=== PATIENT | male | born 1960 | race Caucasian/White ===

== ENCOUNTER 2016-07-09 11:11 | Emergency (ER) | payer MEDICARE, MEDICAID ==
[2016-07-09 12:19] VITALS: BP 122/71
--- NOTE | 2016-07-09 14:53 | UC ---
Skin Complaint HPI - HPI Summary HPI Summary: pt p/w painful red sore on his abd x 2 weeks. used warm compress3-4x/day. seemed to improve at the end of the first week. then sx worsened considerably 5 days ago. any pressure extremely painful(8/10). pt squeezed lesion last night and expressed small amout of exudate. denies f/c/s. - History of Current Complaint Chief Complaint: UCSkin Time Seen by Provider: 07/09/16 12:02 Stated Complaint: SKIN COMPLAINT Hx Obtained From: Patient Onset/Duration: Gradual Onset, Lasting Weeks - 2, Still Present, Worse Since - 5days ago Timing: Constant Onset Severity: Mild Current Severity: Moderate Pain Intensity: 6 Pain Scale Used: 0-10 Numeric Location: Discrete Character: Swelling, Pain, Redness Aggravating: Touch, Other - movement Alleviating: Heat Associated Signs & Symptoms: Positive: Drainage, Tenderness. Negative: Nausea, Vomiting, Diaphoresis, Weakness, Shivering, Difficulty Breathing, Fever, Chills , Cough, Wheezing, Chest Pain, Hoarseness, Throat Tightening, Abdominal Pain, Lightheadedness, Syncope - Allergy/Home Medications Allergies/Adverse Reactions: Allergies Allergy/AdvReac Type Severity Reaction Status Date / Time Ciprofloxacin [From Cipro] Allergy Intermediate Rash Verified 07/09/16 12:19 Morphine Allergy Intermediate stomach, Verified 07/09/16 12:19 chest pain Review of Systems Constitutional: Negative Skin: Other - tender red sore on abd Eyes: Negative ENT: Negative Respiratory: Negative Cardiovascular: Negative Gastrointestinal: Negative Genitourinary: Negative Motor: Negative Neurovascular: Negative Musculoskeletal: Negative Neurological: Negative Psychological: Negative All Other Systems Reviewed And Are Negative: Yes PMH/Surg Hx/FS Hx/Imm Hx Endocrine History Of: Reports: Diabetes - po meds Denies: Thyroid Disease Cardiovascular History Of: Reports: Hypertension Denies: Cardiac Disorders, Pacemaker/ICD Respiratory History Of: Denies: COPD, Asthma GI/ History Of: Reports: Kidney Stones Denies: Ulcer, Renal Disease - Surgical History Surgical History: Yes Surgery Procedure, Year, and Place: Cholecystectomy -URETHRA STRICTURE [facility] 2008-2 MENISCUS TEARS RIGHT KNEE; left knee meniscus 03/2016. 2 NECK FUSION SURGERY [place] 2013 - Family History Known Family History: Positive: Cardiac Disease, Hypertension, Diabetes - Social History Lives: With Family Alcohol Use: None Substance Use Type: None Smoking Status (MU): Heavy Every Day Tobacco Smoker Amount Used/How Often: 1.5 ppd Length of Time of Smoking/Using Tobacco: started about age [age] years old Cessation Counseling: Counseled 3+Min - 10 Min Physical Exam Triage Information Reviewed: Yes Appearance: Well-Appearing, No Pain Distress, Well-Nourished Vital Signs: Initial Vital Signs Temp 99 F 07/09/16 12:14 Pulse 91 07/09/16 12:14 Resp 18 07/09/16 12:14 BP 122/71 07/09/16 12:14 Vital Signs Reviewed: Yes Eyes: Positive: Conjunctiva Clear. Negative: Discharge ENT: Positive: Hearing grossly normal. Negative: Muffled/hoarse voice Neck exam: Normal Neck: Positive: Supple Respiratory: Positive: Lungs clear, Normal breath sounds, No respiratory distress, No accessory muscle use Cardiovascular: Positive: RRR, No Murmur Abdomen Description: Positive: Nontender, Soft, Other: - sore on abd inferior to navel. Negative: Distended, Guarding Bowel Sounds: Positive: Present Musculoskeletal Exam: Normal Neurological: Positive: Alert, Muscle Tone Normal Psychological: Positive: Age Appropriate Behavior Skin: Positive: Other - 2cm red, tender, pos calor and induration(<1cm). neg fluctulance. open but not draining. minimal exudate expressed and cultured. Course/Dx - Course Course Of Treatment: cx was sent. however, sample was minimal. - Differential Diagnoses - Skin Complaint Differential Diagnoses: Abscess, Cellulitis, MRSA - Diagnoses Provider Diagnoses: abscess Discharge - Discharge Plan Condition: Stable Disposition: HOME Prescriptions: HYDROcodone/ACETAMIN 5-325 MG* [Ceres 5-325 TAB*] 1 tab PO Q8H PRN #5 tab MDD 3 TABS PRN Reason: Pain Sulfamethox/Trimethoprim DS* [Bactrim DS 800/160 TAB*] 1 tab PO BID #10 tab Patient Education Materials: Abscess (ED) Referrals: Aidan Moran MD [Primary Care Provider] - 2 Days Additional Instructions: ANTIBIOTIC THERAPY: You have been given an antibiotic prescription. It's important that you take all the medication, unless instructed otherwise by your physician. Failure to complete the entire course can result in relapse of your condition. Common side effects of antibiotics include nausea, intestinal cramping, or diarrhea. Women may develop vaginal yeast infections, and babies can get yeast (thrush) in the mouth following the use of antibiotics. Contact your physician if you develop significant side effects from this medication. Allergy to this antibiotic can result in hives, wheezing, faintness, or itching. If symptoms of allergy occur, stop the medication and call the doctor. ANY TIME YOU TAKE AN ANTIBIOTIC, IT IS IMPORTANT TO REPLENISH THE BODY'S BALANCE OF "GOOD" BACTERIA BY EATING HIGH QUALITY CULTURED FOOD SUCH YOGURT, SAURKRAUT OR LEXX CHI AND/OR TAKING A PROBIOTIC SUPPLEMENT. ORAL NARCOTIC MEDICATION: You have been given a prescription for pain control. This medication is a narcotic. It's best taken with food, as nausea can result if taken on an empty stomach. Don't operate machinery or drive within six hours of taking this medication. Do not combine this medicine with alcohol, or with any medication which can cause sedation (such as cold tablets or sleeping pills) unless you get permission from the physician. Narcotics tend to cause constipation. If possible, drink plenty of fluids and eat a diet high in fiber and fruits. STOP SMOKING: You should stop smoking. The tar and chemicals in cigarette smoke are harmful. Smoking has been shown to cause: emphysema chronic bronchitis lung cancer mouth and throat cancer stomach and pancreas cancer premature aging defects In addition, smoking increases ear and lung infections in children of smokers. Follow up in 2 days for re-evaluation. This follow up visit is important, we want to know that you are improving. If you can not get in with your PCP, return here for re-evaluation. Images Front/Back of Body, Lg (Dougherty): 1 - abd skin lesion
== END 2016-07-09 13:34 | disposition home or self-care (01) ==
LOC: UCCORT 11:11
DX: L02.211 Cutaneous abscess of abdominal wall (principal); E11.9 Type 2 diabetes mellitus without complications; F17.210 Nicotine dependence, cigarettes, uncomplicated; Z88.1 Allergy status to other antibiotic agents; Z88.5 Allergy status to narcotic agent
CPT/HCPCS: 87070; 87205; 99212; G0463

== ENCOUNTER 2016-07-11 11:22 | Emergency (ER) | payer MEDICARE, MEDICAID ==
[2016-07-11 12:59] VITALS: BP 122/82
--- NOTE | 2016-07-11 13:22 | UC ---
Skin Complaint HPI - HPI Summary HPI Summary: F/U abscess on lower abdomen. SEen here 2d ago, started Bactrim 48 hrs ago, " not helping." No fever or vomiting. Thinks the sore is more painful. Putting heat on it. NO drainage. Wound culture from 2d ago grew normal gaudencio - History of Current Complaint Chief Complaint: UCSkin Time Seen by Provider: 07/11/16 12:55 Stated Complaint: STOMACH/SKIN COMPLAINT Hx Obtained From: Patient Onset/Duration: Gradual Onset, Lasting Weeks - 1 Timing: Constant Onset Severity: Moderate Current Severity: Moderate Character: Swelling, Redness, Raised, Painful Aggravating: Touch Alleviating: Heat Associated Signs & Symptoms: Positive: Drainage - off and on, Tenderness. Negative: Nausea, Fever, Chills - Allergy/Home Medications Allergies/Adverse Reactions: Allergies Allergy/AdvReac Type Severity Reaction Status Date / Time Ciprofloxacin [From Cipro] Allergy Intermediate Rash Verified 07/11/16 12:53 Morphine Allergy Intermediate stomach, Verified 07/11/16 12:53 chest pain Review of Systems Constitutional: Negative Skin: Other - abscess with redness Eyes: Negative ENT: Negative Respiratory: Negative Cardiovascular: Negative Gastrointestinal: Negative Genitourinary: Negative Motor: Negative Neurovascular: Negative Musculoskeletal: Negative Neurological: Negative Psychological: Negative All Other Systems Reviewed And Are Negative: Yes PMH/Surg Hx/FS Hx/Imm Hx Endocrine History Of: Reports: Diabetes - po meds Denies: Thyroid Disease Cardiovascular History Of: Reports: Hypertension Denies: Cardiac Disorders, Pacemaker/ICD Respiratory History Of: Denies: COPD, Asthma GI/ History Of: Reports: Kidney Stones Denies: Ulcer, Renal Disease - Surgical History Surgical History: Yes Surgery Procedure, Year, and Place: [place] [facility] [place] MENISCUS TEARS RIGHT KNEE; left knee meniscus 03/2016. 2 NECK FUSION SURGERY [place] 2013 - Family History Known Family History: Positive: Cardiac Disease, Hypertension, Diabetes - Social History Occupation: Employed Full-time Lives: With Family Alcohol Use: None Substance Use Type: None Smoking Status (MU): Heavy Every Day Tobacco Smoker Amount Used/How Often: 1.5 ppd Length of Time of Smoking/Using Tobacco: started about age [age] years old Household Exposure Type: Cigarettes Physical Exam Triage Information Reviewed: Yes Appearance: Well-Appearing, No Pain Distress, Well-Nourished Vital Signs: Initial Vital Signs Temp 98.3 F 01/29/17 12:54 Pulse 75 07/11/16 12:54 Resp 16 07/11/16 12:54 BP 122/82 07/11/16 12:54 Pulse Ox 100 07/11/16 12:54 Vital Signs Reviewed: Yes Eye Exam: Normal Respiratory Exam: Normal Cardiovascular Exam: Normal Abdomen Description: Positive: No Organomegaly, Soft Musculoskeletal Exam: Normal Neurological Exam: Normal Psychological Exam: Normal Skin Exam: Other - nickel-sized firm cutaneous nodule on lower midline abdomen with central opening. Dry. Surrounding erythema. Moderately tender to palpation. Course/Dx - Differential Diagnoses - Skin Complaint Differential Diagnoses: Abscess, Cellulitis - Diagnoses Provider Diagnoses: cutaneous abscess Discharge - Discharge Plan Condition: Stable Disposition: HOME Prescriptions: Clindamycin Cap(NF) [Cleocin 300 mg Cap(NF)] 300 mg PO TID #30 cap HYDROcodone/ACETAMIN 5-325 MG* [B[place]roft 5-325 TAB*] 1 - 2 tab PO Q8H PRN #14 tab MDD 6 tab PRN Reason: Pain Patient Education Materials: Abscess (ED) Referrals: Aidan Moran MD [Primary Care Provider] - Additional Instructions: Stop the Bactrim. Start Clindamycin instead. Continue to put warm compresses on the area. It should start to resolve over the next few days. Return if the redness or swelling is worsening, or if you start to run fevers over 100.5
== END 2016-07-11 13:30 | disposition home or self-care (01) ==
LOC: UCCORT 11:22
DX: L02.211 Cutaneous abscess of abdominal wall (principal); Z88.1 Allergy status to other antibiotic agents; Z88.5 Allergy status to narcotic agent; F17.210 Nicotine dependence, cigarettes, uncomplicated
CPT/HCPCS: 99212; G0463

== ENCOUNTER 2016-08-03 18:49 | Emergency (ER) | payer MEDICARE, MEDICAID ==
[2016-08-03 20:15] VITALS: BP 128/81
--- NOTE | 2016-08-03 20:51 | UC ---
Lower Extremity/Ankle HPI - HPI Summary HPI Summary: Achiness, heaviness, generalized weakness in bilt lags for "a few days." Noticed low back pain today. Denies fever, trouble with bowel or bladder. No hx of lumbar spine problems, had neck surgery in 2013. No known trauma. - History of Current Complaint Chief Complaint: UCBackPain Stated Complaint: LOWER BACK PAIN BILATERAL LEG PAIN Time Seen by Provider: 08/03/16 20:33 Hx Obtained From: Patient Onset/Duration: Gradual Onset, Lasting Days Severity Initially: Moderate Severity Currently: Moderate Aggravating Factor(s): Standing, Ambulation Alleviating Factor(s): Rest Able to Bear Weight: Yes - Allergies/Home Medications Allergies/Adverse Reactions: Allergies Allergy/AdvReac Type Severity Reaction Status Date / Time Ciprofloxacin [From Cipro] Allergy Intermediate Rash Verified 08/03/16 20:15 Morphine Allergy Intermediate stomach, Verified 08/03/16 20:15 chest pain PMH/Surg Hx/FS Hx/Imm Hx Endocrine History Of: Reports: Diabetes - po meds Denies: Thyroid Disease Cardiovascular History Of: Reports: Hypertension Denies: Cardiac Disorders, Pacemaker/ICD Respiratory History Of: Reports: COPD Denies: Asthma GI/ History Of: Reports: Kidney Stones Denies: Ulcer, Renal Disease - Surgical History Surgical History: Yes Surgery Procedure, Year, and Place: Cholecystectomy -URETHRA STRICTURE [facility] [place] 2008- MENISCUS TEARS RIGHT KNEE; left knee meniscus 03/2016. 2 NECK FUSION SURGERY [place] 2013 - Family History Known Family History: Positive: Cardiac Disease, Hypertension, Diabetes - Social History Alcohol Use: None Substance Use Type: None Smoking Status (MU): Heavy Every Day Tobacco Smoker Amount Used/How Often: 1.5 ppd Length of Time of Smoking/Using Tobacco: started about age [age] years old Household Exposure Type: Cigarettes - Immunization History Most Recent Influenza Vaccination: [id number] Review of Systems Constitutional: Negative Skin: Negative Eyes: Negative ENT: Negative Respiratory: Negative Cardiovascular: Negative Gastrointestinal: Negative Genitourinary: Negative Motor: Negative Neurovascular: Negative Musculoskeletal: Decreased ROM, Myalgia Neurological: Weakness Psychological: Negative All Other Systems Reviewed And Are Negative: Yes Physical Exam Triage Information Reviewed: Yes Appearance: Pain Distress - with movement Vital Signs: Initial Vital Signs Temp 100 F 08/03/16 20:09 Pulse 94 08/03/16 20:09 Resp 18 08/03/16 20:09 BP 128/81 08/03/16 20:09 Pulse Ox 96 08/03/16 20:09 Vital Signs Reviewed: Yes Eye Exam: Normal Eyes: Positive: Conjunctiva Clear ENT Exam: Normal ENT: Positive: Normal ENT inspection, Hearing grossly normal, Pharynx normal, TMs normal Neck exam: Normal Neck: Positive: Supple, Nontender, No Lymphadenopathy Respiratory Exam: Normal Respiratory: Positive: Chest non-tender, Lungs clear, Normal breath sounds, No respiratory distress, No accessory muscle use Cardiovascular Exam: Normal Cardiovascular: Positive: RRR, No Murmur Musculoskeletal: Positive: ROM Intact, No Edema, Strength Limited @ - generalized weakness, strength 3/4 bilat LE. Neurological Exam: Other - DTRs 2+ bilt knees, negative Babinski response Psychological Exam: Normal Skin Exam: Normal Lower Extremity Course/Dx - Differential Dx/Diagnosis Provider Diagnoses: Low back pain. bilat leg pain Discharge - Discharge Plan Condition: Stable Disposition: HOME Prescriptions: HYDROcodone/ACETAMIN 5-325 MG* [Sycamore 5-325 TAB*] 1 tab PO Q8H PRN #10 tab MDD 3 PRN Reason: Pain Indomethacin CAP* [Indocin CAP*] 50 mg PO TID PRN #15 cap PRN Reason: Pain Patient Education Materials: Acute Low Back Pain (ED), Leg Pain (ED) Referrals: Aidan Moran MD [Primary Care Provider] - 3 Days Additional Instructions: If you don't have some improvement over the next couple days, please see your primary care provider.
== END 2016-08-03 21:10 | disposition home or self-care (01) ==
LOC: UCCORT 18:49
DX: M54.5 Low back pain (principal); M79.605 Pain in left leg; M79.604 Pain in right leg; E11.9 Type 2 diabetes mellitus without complications; F17.210 Nicotine dependence, cigarettes, uncomplicated; Z88.1 Allergy status to other antibiotic agents; Z88.5 Allergy status to narcotic agent
CPT/HCPCS: 99212; G0463

== ENCOUNTER 2016-12-06 10:00 | Day surgery (SDC) | payer MEDICARE, MEDICAID ==
[~2016-12-06 10:00] MED LIST: Buffered Lidocaine 0.9% SYRIN* 5 ML/SYR SYRINGE INTRADERM ONE; Famotidine IV* 10 MG/ML 2 ML (20 mg) IV ONE
[2016-12-06] MEDS ORDERED: Famotidine IV* 10 MG/ML 2 ML (20 mg) ONE (10:12)
[2016-12-06] MEDS ORDERED: ceFAZolin 2 GM PREMIX(*) 2 GM/50 ML BAG IVPB ONE (10:12)
[2016-12-06] MEDS ORDERED: DiMENhydriNATE IV* 50 MG/ML VIAL IV PUSH PRN (10:39)
[2016-12-06] MEDS ORDERED: fentaNYL* 50 MCG/ML 2 ML VIAL (100 MCG VIAL) IV PRN (10:39)
[2016-12-06] MEDS ORDERED: Chloroprocaine 2%* 20 ML VIAL ONE (10:53)
[2016-12-06] MEDS ORDERED: fentaNYL* 50 MCG/ML 2 ML VIAL (100 MCG VIAL) ONE (10:56)
[2016-12-06] MEDS ORDERED: Midazolam* 1 MG/ML 2 ML VIAL (2 MG) ONE (10:57)
[2016-12-06] MEDS ORDERED: methylPREDNISolone ACETATE 80* 80 MG/ML 1 ML VIAL ONE (11:05)
[2016-12-06] MEDS ORDERED: Bupivacaine 0.25% EPI 200,000* 30 ML SDV ONE (11:06)
[2016-12-06] MEDS ORDERED: Bupivacaine 0.25% SDV* 30 ML ONE (11:06)
[2016-12-06 15:15] VITALS: BP 132/77
--- NOTE | 2016-12-09 06:36 | OP ---
DATE OF OPERATION: 12/06/16 - [facility] DATE OF : 64 SURGEON: Geovany Nagy MD FORM COVERER: DERREK Renteria ANESTHESIOLOGIST: Dr. Wharton. ANESTHESIA: Local with spinal. PRE-OP DIAGNOSIS: Left knee medial meniscal tear. POST-OP DIAGNOSES: Chondrosis, medial meniscal tear, lateral meniscal tear. OPERATIVE PROCEDURE: Left knee arthroscopy with chondroplasty of the trochlea and lateral compartment, partial lateral meniscectomy and partial medial meniscectomy. INDICATIONS: Phong Rey is a 55-year-old male who had a previous partial meniscectomy done approximately eight months ago by Dr. Sorenson. He sustained a twisting injury recently and had the similar symptoms. He has failed conservative management and likes to proceed with operative treatment. Risks and benefits of the surgery include but are not limited to bleeding, infection, damage to nerve, vessels, surrounding structures, wound nonhealing, persistent pain, need for further surgery, scarring, persistent pain, risk of anesthesia. COMPLICATIONS: None. ESTIMATED BLOOD LOSS: Minimal. DESCRIPTION OF PROCEDURE: The patient was greeted in the preoperative area by the attending surgeon. Correct extremity was marked and consent was confirmed. The patient was brought back to the operating suite, where he was placed in supine position and he was sat up and underwent a spinal anesthesia after which the left knee was prepped and draped in the usual sterile fashion. The left knee was then positioned. The lateral an unsterile tourniquet was placed proximal on the thigh. After a minute of surgical pause, intra- articularly injected with 0.25% Marcaine with epi. The left knee was prepped and draped in the usual sterile fashion beginning with chlorhexidine soap, scrub , and alcohol wipe and a final prep with ChloraPrep. After appropriate surgical pause indicating side, site, procedure, and administration of antibiotics, the anterolateral portal was made sharply with an 11 blade. The scope was introduced into the joint. The joint was examined. There was abundant synovitis anteriorly, which was carefully removed. The ACL and PCL were intact although the ACL was mildly degenerative. There was grade 2 changes with unstable flaps on the trochlea. The patellofemoral joint had grade 0-1 changes. The scope was positioned in the medial compartment which was found to have evidence of a previous partial meniscectomy. The probe was used to find the undersurface tear. The biter and brant were then used to perform a subtotal meniscectomy. The probe was used and there were no further tears identified after the . The knee was placed in the figure-of -four position and the lateral compartment was examined. They were graded at 0- 1 changes of the lateral femoral condyle and grade 1-2 of the lateral tibial plateau. There was some mild amount of fraying about the lateral meniscus and this was debrided back using the shaver. At this point, the knee was brought into extension and the knee was thoroughly lavaged and one last time the medial compartment was checked to make sure that there was no excess remnant of meniscus there. The knee was thoroughly lavaged. The portals were also lavaged. They were closed with 3-0 nylon in an interrupted fashion. The sterile dressings were applied. The knee was intra-articularly injected with 0.025% Marcaine plain. A sterile dressing as well as a Cryo/Cuff was applied. He was woke from anesthesia and transferred to PACU in stable condition. POSTOPERATIVE PLAN: He will be weightbearing as tolerated. He will be range of motion as tolerated. He will be discharged on pain medications and antibiotics. DVT prophylaxis was considered but deferred due to no previous personal or family history. [id number]/[facility] #: [id number] ARGENIS
== END 2016-12-06 15:24 | disposition home or self-care (01) ==
LOC: OREAST 10:00
PROVIDERS: ATTEND Orthopaedic Surgery
DX: S83.242A Other tear of medial meniscus, current injury, left knee, initial encounter (principal); S83.282A Other tear of lateral meniscus, current injury, left knee, initial encounter; X50.9XXA Other and unspecified overexertion or strenuous movements or postures, initial encounter; Y92.9 Unspecified place or not applicable; M22.8X2 Other disorders of patella, left knee; I10 Essential (primary) hypertension; J44.9 Chronic obstructive pulmonary disease, unspecified; E11.9 Type 2 diabetes mellitus without complications; F41.9 Anxiety disorder, unspecified; F32.9 Major depressive disorder, single episode, unspecified; Z88.1 Allergy status to other antibiotic agents; Z88.5 Allergy status to narcotic agent; F17.210 Nicotine dependence, cigarettes, uncomplicated; E78.00 Pure hypercholesterolemia, unspecified; Z79.84 Long term (current) use of oral hypoglycemic drugs; M23.232 Derangement of other medial meniscus due to old tear or injury, left knee; S83.412A Sprain of medial collateral ligament of left knee, initial encounter
CPT/HCPCS: J0690; J1040; J2250; J2400; J3010

== ENCOUNTER 2017-02-13 16:36 | Emergency (ER) | payer MEDICARE, MEDICAID ==
[2017-02-13 17:02] VITALS: BP 127/75
[2017-02-13] MEDS ORDERED: Levalbuterol 1.25MG/0.5ML NEB INH ONE (17:32)
[2017-02-13] MEDS ORDERED: Albuterol 2.5 MG/3 ML NEB.SOL* (0.083%) INH ONE (17:36)
[2017-02-13] MEDS ORDERED: Ipratropium 0.5MG/2.5ML NEB* 0.5 MG/2.5 ML NEB.SOLN INH ONE (17:36)
--- NOTE | 2017-02-13 17:40 | UC ---
Respiratory Complaint HPI - HPI Summary HPI Summary: Pt presents with c/o nasal and sinus congestion, cough, wheezing and SOB X 1 week. Pt denies fever, chills or weight loss. - History of Current Complaint Chief Complaint: UCRespiratory Stated Complaint: SINUS/CHEST CONGESTION Time Seen by Provider: 02/13/17 17:09 Hx Obtained From: Patient Onset/Duration: Gradual Onset, Lasting Days - 7, Still Present, Worse Since - onset Timing: Constant Severity Initially: Mild Severity Currently: Moderate Character: Cough: Nonproductive Aggravating Factors: Deep Breaths, Recumbent Position Alleviating Factors: Nothing Associated Signs And Symptoms: Positive: Wheezing, URI, Nasal Congestion - Risk Factors Pulmonary Embolism Risk Factors: Negative Cardiac Risk Factors: Hypertension, Elevated Lipids Pseudomonas Risk Factors: Negative Tuberculosis Risk Factors: Negative - Allergies/Home Medications Allergies/Adverse Reactions: Allergies Allergy/AdvReac Type Severity Reaction Status Date / Time Ciprofloxacin [From Cipro] Allergy Intermediate Rash Verified 02/13/17 17:02 Morphine Allergy Intermediate stomach, Verified 02/13/17 17:02 chest pain PMH/Surg Hx/FS Hx/Imm Hx Previously Healthy: Yes Endocrine History: Dyslipidemia Cardiovascular History: Hypertension - Surgical History Surgical History: Yes Surgery Procedure, Year, and Place: Cholecystectomy -URETHRA STRICTURE [facility] 2008-2 MENISCUS TEARS RIGHT KNEE; left knee meniscus 03/2016. 2 NECK FUSION SURGERY [place] 2013. right hand trigger finger surgery - Family History Known Family History: Positive: Cardiac Disease, Hypertension, Diabetes - Social History Lives: Alone Alcohol Use: None Substance Use Type: None Smoking Status (MU): Former Smoker Type: Cigarettes Amount Used/How Often: 1.5 ppd, smokes for more than 30 years Length of Time of Smoking/Using Tobacco: started about age [age] years old Have You Smoked in the Last Year: No When Did the Patient Quit Smoking/Using Tobacco: 12/27 Household Exposure Type: Cigarettes - Immunization History Most Recent Influenza Vaccination: no Review of Systems Constitutional: Fatigue Skin: Negative Eyes: Negative ENT: Sinus Congestion, Other - nasal congestion Respiratory: Cough, Other - wheezing Cardiovascular: Negative Gastrointestinal: Negative Genitourinary: Negative Motor: Negative Neurovascular: Negative Musculoskeletal: Negative Neurological: Negative Psychological: Negative All Other Systems Reviewed And Are Negative: Yes Physical Exam Triage Information Reviewed: Yes Appearance: Ill-Appearing Vital Signs: Initial Vital Signs Temp 98.8 F 02/13/17 16:57 Pulse 90 02/13/17 16:57 Resp 18 02/13/17 16:57 BP 127/75 02/13/17 16:57 Pulse Ox 95 02/13/17 16:57 Eye Exam: Normal ENT Exam: Normal Dental Exam: Normal Neck exam: Normal Respiratory Exam: Other Respiratory: Positive: Decreased breath sounds - bases bilateral, Wheezing - scattered throughout all Cardiovascular Exam: Normal Musculoskeletal Exam: Normal Neurological Exam: Normal Psychological Exam: Normal Skin Exam: Normal UC Diagnostic Evaluation - Laboratory O2 Sat by Pulse Oximetry: 95 Respiratory Course/Dx - Course Course Of Treatment: xray report discussed with pt. Pt verbalized understanding and agreed to plan of care. - Differential Dx/Diagnosis Differential Diagnosis/HQI/PQRI: Bronchitis, Other - pneumonia Provider Diagnoses: pneumonia Discharge - Discharge Plan Condition: Stable Disposition: HOME Prescriptions: Azithromycin TAB* [Zithromax TAB (Z-MELVIN) 250 mg #6 tabs] 2 tab PO .TODAY, THEN 1 DAILY #1 melvin Benzonatate CAP* [Tessalon 100 MG CAP*] 100 mg PO Q8H PRN #30 cap PRN Reason: Cough methylPREDNISolone TAB* [Medrol TAB*] 4 - 8 mg PO .SEE MELVIN #1 melvin Patient Education Materials: Pneumonia (ED) Referrals: Aidan Moran MD [Primary Care Provider] - 3 Days (Please follow up with your PCP in 3 days or as needed. If symptoms do not improve please seek medical attention as soon as possible. )
[2017-02-13] MEDS ORDERED: Azithromycin TAB* 250 MG PO ONE (18:07)
--- NOTE | 2017-02-13 18:38 | RAD ---
INDICATION: Shortness of breath, fatigue and cough. COMPARISON: Comparison is made with a prior study from November 01, 2010. TECHNIQUE: Dual-energy PA and lateral views of the chest were obtained. FINDINGS: The heart is within normal limits in size. Mediastinal and hilar contours appear within normal limits. The lungs are clear. There is mild blunting of the left costophrenic angle consistent with pleural thickening or a trace pleural effusion. Postsurgical changes are noted in the lower cervical spine. IMPRESSION: MILD BLUNTING OF THE LEFT COSTOPHRENIC ANGLE CONSISTENT WITH PLEURAL THICKENING OR A TRACE PLEURAL EFFUSION.
== END 2017-02-13 18:50 | disposition home or self-care (01) ==
LOC: UCCORT 16:36
DX: J18.9 Pneumonia, unspecified organism (principal); Z87.891 Personal history of nicotine dependence
CPT/HCPCS: 71020; 99212; A9270-GY; G0463; J7644

== ENCOUNTER 2017-09-01 13:53 | Emergency (ER) | payer MEDICARE, MEDICAID ==
[2017-09-01 16:04] VITALS: BP 142/84
--- NOTE | 2017-09-01 16:14 | UC ---
Skin Complaint HPI - HPI Summary HPI Summary: 56 year old male with diabetes presents with skin complaint. 3-4 days ago noticed in between the 3rd and on the 4th digit there was redness and a area of swelling that is tender to touch and maybe a little bigger now and hurts more with walking. no fever. has had DM-2 for 2 years. no apartment locator. no history of neuropathy. no drainage. - History of Current Complaint Chief Complaint: UCSkin Time Seen by Provider: 09/01/17 16:00 Stated Complaint: INFECTED TOE (DIABETIC) Hx Obtained From: Patient Onset/Duration: Gradual Onset Skin Exposure Onset/Duration: Days Ago Timing: Constant Onset Severity: Mild Current Severity: Moderate Pain Intensity: 4 - Allergy/Home Medications Allergies/Adverse Reactions: Allergies Allergy/AdvReac Type Severity Reaction Status Date / Time ciprofloxacin Allergy Rash Verified 09/01/17 15:54 morphine Allergy STOMACH/CHEST Verified 09/01/17 15:54 PAIN Home Medications: Home Medications Ibuprofen TAB* [Advil TAB*] 400 mg PO Q6H PRN 09/01/17 [History Confirmed ] glipiZIDE [Glipizide] 10 mg PO BID 09/01/17 [History Confirmed 09/01/17] Review of Systems Skin: Other - redness and pain on skin on left foot All Other Systems Reviewed And Are Negative: Yes PMH/Surg Hx/FS Hx/Imm Hx Previously Healthy: Yes Endocrine History: Diabetes, Dyslipidemia Cardiovascular History: Hypertension GI/ History: Gastroesophageal Reflux - Surgical History Surgical History: Yes Surgery Procedure, Year, and Place: Cholecystectomy -URETHRA STRICTURE [facility] [place] 2008-2 MENISCUS TEARS RIGHT KNEE; left knee meniscus 03/2016. 2 NECK FUSION SURGERY [place] 2013. right hand trigger finger surgery - Family History Known Family History: Positive: Cardiac Disease, Hypertension, Diabetes - Social History Alcohol Use: None Substance Use Type: None Smoking Status (MU): Former Smoker Type: Cigarettes Amount Used/How Often: 1.5 ppd, smokes for more than 30 years Length of Time of Smoking/Using Tobacco: started about age [age] years old Have You Smoked in the Last Year: No When Did the Patient Quit Smoking/Using Tobacco: 12/27 Household Exposure Type: Cigarettes - Immunization History Most Recent Influenza Vaccination: no Physical Exam Triage Information Reviewed: Yes Appearance: Well-Appearing, No Pain Distress, Well-Nourished Vital Signs: Initial Vital Signs Temp 98 F 09/01/17 15:58 Pulse 77 09/01/17 15:58 Resp 16 09/01/17 15:58 BP 142/84 09/01/17 15:58 Pulse Ox 97 09/01/17 15:58 Vital Signs Reviewed: Yes Respiratory Exam: Normal Cardiovascular Exam: Normal Musculoskeletal Exam: Normal Neurological Exam: Normal Psychological Exam: Normal Skin: Positive: Other - left foot medially with redness and tenderness with swelling present that is mild and some erythema. no drainage. no streaking. densation intact. cap refill < 3 sec. pulses brisk. no forefoot involvement. FROM of the toes and ankle joint. sensation intact. no break down of skin. no ulceration Course/Dx - Course Course Of Treatment: warm soak BID, elevate leg, wear proper shoes, consider cotton swab for a day or so. advise to establish with podiatry. if sx worsen then go to ED no pain on the forefoot or plantar aspect of foot so no charcot . no trauma or FB concern so no xray - Diagnoses Provider Diagnoses: Left foot cellulitis Discharge - Sign-Out/Discharge Documenting (check all that apply): Discharge - Discharge Plan Condition: Good Disposition: HOME Prescriptions: cephALEXin [Keflex] 500 mg PO TID #30 capsule Patient Education Materials: Cellulitis (ED) Referrals: Aidan Moran MD [Primary Care Provider] - 4 Days (Also please look in to a apartment locator ) - Billing Disposition and Condition Condition: GOOD Disposition: HOME
== END 2017-09-01 16:34 | disposition home or self-care (01) ==
LOC: UCCORT 13:53
DX: Z79.84 Long term (current) use of oral hypoglycemic drugs (principal); Z88.1 Allergy status to other antibiotic agents; Z88.5 Allergy status to narcotic agent; E11.9 Type 2 diabetes mellitus without complications; L03.116 Cellulitis of left lower limb
CPT/HCPCS: 99212; G0463

== ENCOUNTER 2018-06-17 09:32 | Emergency (ER) | payer MEDICARE, MEDICAID ==
--- OUTSIDE RECORDS SUMMARY | 2018-06-17 10:24 | XMS REPORT ---
:1960 External Reference #:[id number] Author Organization [facility] Address [address], [address] [place] [address] Phone [phone] Care Team Providers Name Role Phone Mary Baltazar MD Care Team Information Processing Analyst Unavailable Aidan Moran MD Primary Care Physician Unavailable Payers Type Date Identification Numbers Payment Provider Subscriber Medicare Primary Policy Number: [id number] Medicare Phong Rey PayID: [id number] [address] [place] [address] Medicaid Policy Number: [id number] Medicaid Phong Rey PayID: [id number] [address] [place] [address] Problems Date Description Provider Status Onset: 03/22/2018 Screening for malignant neoplasm of Devin Garnica MD, FACS Active colon Onset: 03/22/2018 Lipoma of skin and subcutaneous Devni Garnica MD,FACS Active tissue of face Family History Date Family Member(s) Problem(s) Comments Father due to Renal Failure () Mother due to Natural Causes () Social History Type Date Description Comments Occupation Disabled Cigarette Use Pack Years - 30 Cigarette Use Current Cigarette Smoker 1 Pack Daily ETOH Use Denies alcohol use Smoking Patient is a current smoker, smokes every day Recreational Drug Use Denies Drug Use Allergies, Adverse Reactions, Alerts Date Description Reaction Status Severity Comments 03/17/2018 Cipro active 03/17/2018 Morphine Sulfate active Medications Medication Date Status Form Strength Qnty SIG Indications Ordering Provider Omeprazole / Active Capsules 20mg 1 by mouth Unknown 0000 [address] every day Pravastatin 00/ Active Tablets 20mg 1 by mouth Unknown Sodium 0000 every day Lisinopril / Active Tablets 10mg 1 by mouth Unknown 0000 every day Symbicort / Active Aerosol 160-4.5mcg inhale two Unknown 0000 /Act puffs by mouth twice a day Ventolin HFA / Active Aerosol 108(90Base take 2 Unknown 0000 ) mcg/Act puffs every 6 hours as needed for shortness of breath. Spiriva / Active Aerosol 2.5mcg/Act take 2 Unknown Respimat 0000 puffs once daily. Glipizide / Active Tablets 5mg 1 by mouth Unknown 0000 every day Buspirone HCL / Active Tablets 15mg 1 tab by Unknown 0000 mouth twice a day Trazodone HCL / Active Tablets 150mg take one Unknown 0000 tablet by mouth at bedtime Venlafaxine / Active Caps ER 75mg 1 by mouth Unknown HCL ER 0000 24HR every day Venlafaxine / Active Tablets ER 225mg 1 by mouth Unknown HCL ER 0000 24HR every day Ibuprofen / Active Tablets 600mg 1 by mouth Unknown 0000 three times a day as needed Gabapentin / Active Capsules 300mg take one Unknown 0000 capsule by mouth three times a day Hydrocodone-Ac / Active Tablets 5-325mg 1 tab by Unknown etaminophen 0000 mouth every 6 hours as needed Blood Glucose / Active Kit W/Device check blood Unknown Monitoring 0000 sugars System fasting in in the morning dx. e11.9 Lancets / Active Misc for three Unknown 0000 times a day - four times a day use Immunizations CPT Code Status Date Vaccine Lot # [id number] Given 06/02/1999 Tetnus Injection Vital Signs Date Vital Result Comment 05/24/2018 BP Systolic 128 mmHg BP Diastolic 82 mmHg Heart Rate 97 /min Respiratory Rate 16 /min Height 70 inches 5'10" Weight 204.00 lb BMI (Body Mass Index) 29.3 kg/m2 BSA (Body Surface Area) 2.10 m2 [place] body weight in kilograms 75 O2 % BldC Oximetry 94 % 04/21/2018 BP Systolic 142 mmHg BP Diastolic 82 mmHg Heart Rate 93 /min Respiratory Rate 15 /min Height 70 inches 5'10" Weight 202.00 lb BMI (Body Mass Index) 29.0 kg/m2 BSA (Body Surface Area) 2.10 m2 [place] body weight in kilograms 75 O2 % BldC Oximetry 93 % 03/22/2018 BP Systolic 114 mmHg BP Diastolic 77 mmHg Heart Rate 85 /min Respiratory Rate 17 /min Height 70 inches 5'10" Weight 200.00 lb BMI (Body Mass Index) 28.7 kg/m2 BSA (Body Surface Area) 2.09 m2 [place] body weight in kilograms 75 O2 % BldC Oximetry 94 % Results Description No Information Procedures Date CPT Code Description Status 05/15/2018 53415 Exiscision, Tumor, Soft Tissue Of Face Or Scalp, Sub, < Completed 2 CM 12/10/2011 81078 ECHO [employer]an[employer] Performance Continuous Completed Electrocardio 08/14/2008 02817 Stress Test Interpre And Report Only Completed 08/08/2008 48856 EKG-Tracing And Report Completed 07/30/2008 93018 Pulse Oximetry Completed 09/01/2000 40848 EKG Interpretation And Report Only Completed 08/31/2000 44096 EKG Interpretation And Report Only Completed 08/30/2000 14030 EKG Interpretation And Report Only Completed 03/23/2000 44223 EKG Interpretation And Report Only Completed 02/17/2000 84081 EKG Interpretation And Report Only Completed 01/13/2000 39082 EKG Interpretation And Report Only Completed 12/09/1999 49850 EKG Interpretation And Report Only Completed 11/04/1999 90850 EKG Interpretation And Report Only Completed 09/30/1999 86008 EKG Interpretation And Report Only Completed 08/26/1999 74443 EKG Interpretation And Report Only Completed 06/29/1999 53467 EKG-Tracing And Report Completed 06/15/1999 15903 Destruct-Skin Tags/Lesions-Local Anesthesia - First Completed Lesion Encounters Type Date Location Provider CPT E/M Dx Office Visit 04/21/2018 9:30a Surgical Office Devin Garnica MD,FACS 59229 D17.0 Office Visit 03/22/2018 2:15p Surgical Office Devin Garnica MD,FACS 06435 D17.0 Z12.11 Office Visit 08/20/2014 5:17p Replaced By [facility] Clive Chambers M.D. [id number] [place] [address] 592.0 Plan of Care 05/24/2018 - Devin Garnica MD,FACSD17.0 [place] lipomatous neoplm of skin, subcu of head, face and neckComments:lipoma of the posterior scalp, now removed. healing well. sutures removed. patholgoy report was reviewed and discussed with the patient. RTC prn.
[2018-06-17 10:34] VITALS: BP 117/74
--- NOTE | 2018-06-17 10:50 | UC ---
UC General HPI - HPI Summary HPI Summary: 3 WEEKS WORSENING SINUS PAIN AND CONGESTION. 1 WEEK WORSENING COUGH WITH CONGESTION AND SOME WHEEZING. SMOKES AND HX COPD - History of Current Complaint Chief Complaint: UCRespiratory Stated Complaint: SINUS CONGESTION Time Seen by Provider: 06/17/18 10:44 Hx Obtained From: Patient Onset/Duration: Gradual Onset Timing: Constant Pain Intensity: 0 Associated Signs & Symptoms: Negative: Chest Pain, Fever - Allergy/Home Medications Allergies/Adverse Reactions: Allergies Allergy/AdvReac Type Severity Reaction Status Date / Time ciprofloxacin Allergy Rash Verified 06/17/18 10:23 morphine Allergy STOMACH/CHEST Verified 06/17/18 10:23 PAIN PMH/Surg Hx/FS Hx/Imm Hx - Additional Past Medical History Additional PMH: CHRONIC PAIN Endocrine History: Dyslipidemia Cardiovascular History: Hypertension Respiratory History: COPD GI/ History: Gastroesophageal Reflux - Surgical History Surgical History: Yes Surgery Procedure, Year, and Place: Cholecystectomy -[facility]RA [facility] [place] 2008- MENISCUS TEARS RIGHT KNEE; left knee meniscus 03/2016. 2 NECK FUSION SURGERY [place] 2013. right hand trigger finger surgery. lipoma excision 05/15 - Family History Known Family History: Positive: Cardiac Disease, Hypertension, Diabetes - Social History Alcohol Use: Rare Substance Use Type: None Smoking Status (MU): Heavy Every Day Tobacco Smoker Type: Cigarettes Amount Used/How Often: //06/24 PPD for more than 30 years Length of Time of Smoking/Using Tobacco: started about age [age] years old Have You Smoked in the Last Year: Yes When Did the Patient Quit Smoking/Using Tobacco: 12/27 Household Exposure Type: Cigarettes - Immunization History Most Recent Influenza Vaccination: no Review of Systems All Other Systems Reviewed And Are Negative: Yes Constitutional: Positive: Negative Skin: Positive: Negative Eyes: Positive: Negative ENT: Positive: Nasal Discharge, Sinus Congestion, Sinus Pain/Tenderness Respiratory: Positive: Shortness Of Breath, Cough Cardiovascular: Positive: Negative Gastrointestinal: Positive: Negative Genitourinary: Positive: Negative Motor: Positive: Negative Neurovascular: Positive: Negative Musculoskeletal: Positive: Arthralgia - NECK, CHRONIC Neurological: Positive: Negative Psychological: Positive: Negative Physical Exam Triage Information Reviewed: Yes Appearance: Well-Appearing Vital Signs: Initial Vital Signs Temp 97.5 F 06/17/18 10:27 Pulse 103 06/17/18 10:27 Resp 23 06/17/18 10:27 BP 117/74 06/17/18 10:27 Pulse Ox 96 06/17/18 10:27 Vital Signs Reviewed: Yes Eyes: Positive: Conjunctiva Clear ENT: Positive: Pharynx normal, Nasal congestion, TMs normal, Sinus tenderness. Negative: Nasal drainage Neck: Positive: Supple, Nontender, No Lymphadenopathy Respiratory: Positive: No respiratory distress, Decreased breath sounds, Other: - cough is congested. Cardiovascular: Positive: RRR, No Murmur Abdomen Description: Positive: Nontender, No Organomegaly, Soft Bowel Sounds: Positive: Present Musculoskeletal: Positive: ROM Intact Neurological: Positive: Alert Psychological: Positive: Age Appropriate Behavior Skin Exam: Normal Course/Dx - Differential Dx - Multi-Symptom Differential Diagnoses: Other - uri, sinusitis, bronchitis, copd, pneumonia - Diagnoses Provider Diagnosis: Sinusitis, COPD exacerbation Discharge - Sign-Out/Discharge Documenting (check all that apply): Patient Departure All imaging exams completed and their final reports reviewed: No Studies - Discharge Plan Condition: Stable Disposition: HOME Prescriptions: DOXYcycline CAP(*) [DOXYcycline 100MG CAP(*)] 100 mg PO BID 10 Days #20 cap predniSONE TAB* [Deltasone 20 MG TAB*] 40 mg PO DAILY 5 Days #10 tab Patient Education Materials: Sinusitis (ED), COPD (Chronic Obstructive Pulmonary Disease) (ED) Referrals: Aidan Moran MD [Primary Care Provider] - 7 Days Additional Instructions: USE ALBUTEROL INHALER 2 PUFFS EVERY 6 HOURS - Billing Disposition and Condition Condition: STABLE Disposition: Home - Attestation Statements Provider Attestation: I was available for consult. This patient was seen by the ISABELLA. The patient was not presented to, seen by, or examined by me. EK
[2018-06-19 10:01] LABS: Hepatitis C Antibody Nonreactive (Nonreactive)
== END 2018-06-17 11:03 | disposition home or self-care (01) ==
LOC: UCCORT 09:32
DX: J32.9 Chronic sinusitis, unspecified (principal); J44.1 Chronic obstructive pulmonary disease with (acute) exacerbation; Z88.1 Allergy status to other antibiotic agents; Z88.5 Allergy status to narcotic agent; I10 Essential (primary) hypertension; F17.210 Nicotine dependence, cigarettes, uncomplicated
CPT/HCPCS: 36415; 86803; 99212; G0463

== ENCOUNTER → 2019-04-25 12:12 | Day surgery (SDC) | payer MEDICARE, MEDICAID ==
[~2019-04-25 12:12] MED LIST changes: +Acetaminophen TAB* 325 MG PO PRN; -Buffered Lidocaine 0.9% SYRIN* 5 ML/SYR SYRINGE INTRADERM ONE; +Buffered Lidocaine 1% SYRIN* 1 ML/SYRINGE INTRADERM ONE; +Dexamethasone IV* 4 MG/ML 1 ML (4 MG) ONE; +Dexmedetomidine* 200 MCG/2 ML 2 ML VIAL ONE; +DiMENhydriNATE IV* 50 MG/ML VIAL IV PUSH PRN; -Famotidine IV* 10 MG/ML 2 ML (20 mg) IV ONE; +Glycopyrrolate IV* 0.2 MG/ML 1 ML VIAL ONE; +Ketorolac INJ* 30 MG/ML 1 ML VIAL ONE; +Lactated Ringers 1000 ML Bag* 1,000 ML IV SCH; +Lidocaine 2% PF * 5 ML VIAL ONE; +Metoclopramide IV* 5 MG/ML 2 ML VIAL ONE; +Midazolam* 1 MG/ML 2 ML VIAL (2 MG) ONE; +Naloxone* 0.4 MG/ML 1 ML VIAL IV PRN; +Neostigmine Methylsulfate* 1 MG/ML 10 ML VIAL (1 mg/ml) ONE; +Ondansetron INJ* 2 MG/ML VIAL ONE; +Propofol* 10 MG/ML 20 ML BTL ONE; +ROPIVACAINE 5 MG/ML 30 ML BTL (0.5%) ONE; +Rocuronium* 10 MG/ML VIAL ONE; +ceFAZolin 2 GM in NS PREMIX(*) 2 GM/100 ML BAG IVPB ONE; +fentaNYL* 50 MCG/ML 2 ML VIAL (100 MCG VIAL) IV PRN; +fentaNYL* 50 MCG/ML 2 ML VIAL (100 MCG VIAL) ONE; +oxyCODONE TAB* 5 MG TAB PO PRN
[2019-04-25 16:58] VITALS: BP 129/78
--- NOTE | 2019-04-26 01:28 | OP ---
DATE OF OPERATION: 04/25/19 [facility] DATE OF : 64 SURGEON: Geovany Nagy MD. [employer] PREP TEACHER: DERREK Galarza. An tax assistant was needed for the entirety of the case to help with positioning, retraction, and was utilized throughout all portions of the case. ANESTHESIOLOGIST: Dr. Bermudez. ANESTHESIA: General with interscalene block. PRE-OP DIAGNOSIS: Right shoulder partial-thickness tear of the rotator cuff with impingement and bicipital tendinitis. POST-OP DIAGNOSIS: Right shoulder partial thickness tear of the rotator cuff with impingement and bicipital tendinitis. OPERATIVE PROCEDURES: Right shoulder arthroscopy with; 1. Extensive glenohumeral debridement including biceps tenotomy. 2. Subacromial decompression with acromioplasty. 3. Rotator cuff repair using Regeneten patch. COMPLICATIONS: None. ESTIMATED BLOOD LOSS: Minimal. IMPLANTS USED: A size large Regeneten patch. INDICATIONS: Phong Rey is a 58-year-old male with persistent shoulder pain refractory to conservative management. He has been slowly working on quitting smoking. After extensive discussion of risks and benefits of operative treatment, he has elected to proceed with surgical treatment, which included but not limited to bleeding; infection; damage to nerves, vessels, surrounding structures; wound nonhealing; persistent pain; need for further surgery; scarring; stiffness; incomplete relief of symptoms; risks of anesthesia. DESCRIPTION OF PROCEDURE: The patient was greeted in the preoperative area by the attending surgeon. The correct extremity was marked and consent was confirmed. The patient underwent interscalene nerve block by anesthesiologist, after which he was brought back to the operating suite and placed in the supine position on the operating table. He then underwent general anesthesia and endotracheal intubation after which he was placed in the lateral decubitus position with an axillary roll. All bony prominences were padded and secured with a pegboard. The right shoulder was prepped and draped in the usual sterile fashion with chlorhexidine soap, scrub, and alcohol wipe, and a final prep with ChloraPrep. After appropriate surgical pause indicating side, site, procedure, and administration of antibiotics, the standard postero-lateral portal was made sharply with 11 blade. The scope was introduced into the joint. Joint was examined. There was abundant synovitis there. The superior labrum has unstable fraying and tearing. The biceps had a lot of synovitis and was tenotomized. The inferior recess was intact. There was some fraying of the anterior, posterior, and superior labrum. There was some partial tearing of the subscap, but it grossly appeared intact. There was 5% to 10% partial tearing, this was debrided back. After the intraarticular work was done, attention was directed to the subacromial space. The scope positioned in the subacromial space. A lateral portal was made in an outside-in fashion. Shaver was used to debride back the abundant thick bursa that was present. The 4.0 oval bur was used to do an acromioplasty. Attention was then directed to the rotator cuff. There was partial tearing on the undersurface and there was some mild fraying in the bursa. The decision was made to treat this with a Regeneten patch. A size large Regeneten patch was brought to the field and placed under arthroscopic direct visualization. Then through a separate stab incisions, the tendon saige were then placed and laterally the PEEK saige were used to secure it to the bone. A final image was obtained and the shoulder was taken through a range of motion. The wound was copiously irrigated with sterile saline. A 3-0 nylon was used to close the portal. Sterile dressings were applied. A Cryo/Cuff and a regular sling were applied. He was awoken from anesthesia and transferred to the PACU in stable condition. POSTOPERATIVE PLAN: He will be nonweightbearing. Range of motion as tolerated. Discharged on pain medication. Start therapy next week. I will see the patient back in 10 to 14 days. [id number]/[facility] #: [id number] ARGENIS
== END | disposition home or self-care (01) ==
LOC: OR 12:12
PROVIDERS: ATTEND Orthopaedic Surgery
DX: S46.011D Strain of muscle(s) and tendon(s) of the rotator cuff of right shoulder, subsequent encounter (principal); M54.12 Radiculopathy, cervical region; J44.9 Chronic obstructive pulmonary disease, unspecified; E78.00 Pure hypercholesterolemia, unspecified; F41.8 Other specified anxiety disorders; I10 Essential (primary) hypertension; E11.9 Type 2 diabetes mellitus without complications; Z79.84 Long term (current) use of oral hypoglycemic drugs; F17.210 Nicotine dependence, cigarettes, uncomplicated; G89.18 Other acute postprocedural pain
CPT/HCPCS: C1713; J0690; J1100; J1885; J2250; J2405; J2704; J2710; J2765; J2795; J3010

== ENCOUNTER 2019-07-06 11:16 | Emergency (ER) | payer MEDICARE, MEDICAID ==
--- OUTSIDE RECORDS SUMMARY | 2019-07-06 12:07 | XMS REPORT | Continuity of Care Document ---
:1960 External Reference #:[id number] Author Name Geovany Nagy MD (transmitted by agent of provider Kyara Holder) Address [address] [facility], [place] [address] Care Team Providers Name Role Phone Flo Burciaga MD - Internal Care Team Information District Claims Manager Medicine [place] Vieyra MD - Interventional Care Team Information District Claims Manager Pain Medicine Aidan Moran MD - Family Medicine Care Team Information District Claims Manager [phone] Problems Active Problems Provider Date Acquired trigger finger Kyara Leyva M.D. Onset: 04/22/2011 Derangement of medial meniscus Geovany Nagy MD Onset: 11/25/2016 Sprain of medial collateral ligament of knee Geovany Nagy MD Onset: 2016 Strain of rotator cuff capsule Geovany Nagy MD Onset: 11/03/2018 Radiculopathy, cervical region Geovany Nagy MD Onset: 11/03/2018 Incomplete rotator cuff tear or rupture of Geovany Nagy MD Onset: 05/08/2019 right shoulder, not specified as traumatic Bicipital tenosynovitis Geovany Nagy MD Onset: 05/08/2019 Social History Type Date Description Comments Sex Unknown Tobacco Use Start: Unknown Current Cigarette Smoker 1 1/2 Packs Daily Smoking Status Reviewed: 05/08/19 Current Cigarette Smoker 1 1/2 Packs Daily ETOH Use Denies alcohol use Tobacco Use Start: Unknown Patient is a current smoker, smokes every day Recreational Drug Use Denies Drug Use Exercise Type/Frequency Exercises regularly Allergies, Adverse Reactions, Alerts Active Allergies Reaction Severity Comments Date Cipro 08/05/2010 Morphine Sulfate 11/11/2016 Medications Active Medications SIG Qnty Indications Ordering Date Provider Oxycodone HCL 1 tabs by mouth 9tabs Geovany Nagy MD 04/26/2019 5mg every 8 hours as Tablets needed post op pain Diclofenac Sodium take 1 by mouth 30tabs S46.011A Geovany Nagy MD 2018 twice a day as 75mg Tablets DR needed for pain Hydrocodone-Acetamin take 1-2 tablet by 30tabs M23.232 Geovany Nagy MD ophen mouth every 6 hours 5-325mg Tablets as needed. Gabapentin 1 tablet by mouth Luther, 300mg noon and bedtime RADHA Ibrahim Capsules Breo Ellipta 1 puff inhaled Unknown daily 100-25mcg/Inh Aerosol Spiriva Respimat 2 puffs by mouth Aidan Moran, daily 2.5mcg/Act Aerosol Chantix take 1 twice a day Unknown 0.5mg Tablets Cialis one tab 30 minutes Unknown 20mg Tablets prior to intercourse Trazodone HCL take 1 tablet by Unknown 150mg mouth at bedtime Tablets Buspirone HCL take one tablet by Unknown 15mg mouth twice a day Tablets Lisinopril 1 by mouth every Unknown 10mg day Tablets Ventolin HFA 2 puffs by mouth Unknown q4-6h prn 108(90Base) mcg/Act Aerosol Blood Glucose check blood sugar q Unknown Monitoring System am W/Device Kit Lancet Device 1 q am Unknown Misc Blood Glucose Test check blood glucose Unknown daily in am Strips Venlafaxine HCL 1 by mouth every Unknown 75mg day Tablets Omeprazole 1 by mouth every Unknown 20mg day Capsules DR Pravastatin Sodium 1 by mouth every Unknown day at hs 20mg Tablets Venlafaxine HCL ER 1 by mouth every Unknown day 225mg Tablets ER 24HR Goodsense ALL Day 1 by mouth every Unknown Allergy day 10mg Tablets Medications Administered in Office Medication SIG Qnty Indications Ordering Provider Date Triamcinolone (Kenalog) Geovany Nagy MD 11/03/2018 Injection Celestone 3 mg and 3mg Humberto Mazariegos MD 11/11/2016 Injection Depomedrol 80MG Kyara Leyva M.D. 06/29/2012 Injection Depomedrol 80MG Kyara Leyva M.D. 03/11/2011 Injection Immunizations Description No Information Available Vital Signs Date Vital Result Comment 05/08/2019 10:02am Height 69 inches 5'9" Weight 194.00 lb Heart Rate 82 /min Respiratory Rate 16 /min Body Temperature 96.4 F Pain Level 7 BMI (Body Mass Index) 28.6 kg/m2 04/17/2019 9:48am Height 69 inches 5'9" Weight 194.00 lb Heart Rate 64 /min BP Systolic Sitting 120 mmHg BP Diastolic Sitting 74 mmHg Respiratory Rate 16 /min Body Temperature 98.2 F Pain Level 5 BMI (Body Mass Index) 28.6 kg/m2 Results Test Acquired Date Facility Test Result H/L Range Note Laboratory test 04/25/2019 [facility] Point of Care 124 mg/dL High 70-100 [address] [place] [id number] [phone] Sociology Adjunct Instructor: [id number] Procedures Date Code Description Status 04/25/2019 89494 Arthroscopy Shoulder,W/Rotator Cuff Repair Completed 04/25/2019 88482 Arthroscopy Shoulder,W/Rotator Cuff Repair Completed 04/25/2019 77863 Arthroscopy,Shoulder Decompression Of Subacromial Space Completed W/Acromio 04/25/2019 95665 Arthroscopy,Shoulder Decompression Of Subacromial Space Completed W/Acromio Medical Devices Description No Information Available Encounters Type Date Location Provider Dx Diagnosis Office Visit 03/20/2019 [facility] Geovany Nagy MD S46.011D Strain of 10:00a at [place] musc/tend the rotator cuff of right shoulder, subs M54.12 Radiculopathy, cervical region Assessments Date Code Description Provider 05/08/2019 M75.111 Incomplete rotator cuff tear or rupture of Geovany Nagy MD right shoulder, not specified as traumatic 05/08/2019 M75.21 Bicipital tendinitis, right shoulder Geovany Nagy MD 04/25/2019 M75.111 Incomplete rotator cuff tear or rupture of DERREK Mcintosh right shoulder, not specified as traumatic 04/25/2019 M75.111 Incomplete rotator cuff tear or rupture of Geovany Nagy MD right shoulder, not specified as traumatic 04/25/2019 M75.41 Impingement syndrome of right shoulder DERREK Mcintosh 04/25/2019 M75.41 Impingement syndrome of right shoulder Geovany Nagy MD 04/25/2019 M75.21 Bicipital tendinitis, right shoulder DERREK Mcintosh 04/25/2019 M75.21 Bicipital tendinitis, right shoulder Geovany Nagy MD 04/17/2019 S46.011D Strain of muscle(s) and tendon(s) of the Geovany Nagy MD rotator cuff of right shoulder, subsequent encounter 04/17/2019 M54.12 Radiculopathy, cervical region Geovany Nagy MD 03/20/2019 S46.011D Strain of muscle(s) and tendon(s) of the Geovany Nagy MD rotator cuff of right shoulder, subsequent encounter 03/20/2019 M54.12 Radiculopathy, cervical region Geovany Nagy MD Plan of Treatment Future Appointment(s):06/07/2019 10:15 am - Geovany Nagy MD at [facility] at [place]af[place]8705/08/2019 - Geovany Nagy MDM75.111 Incomplete rotator cuff tear or rupture of right shoulder, not specified as traumaticFollow up: Follow up: 4 foscuY62.21 Bicipital tendinitis, right shoulder Functional Status Description No Information Available Mental Status Description No Information Available Referrals Description No Information Available
--- OUTSIDE RECORDS SUMMARY | 2019-07-06 12:07 | XMS REPORT | Continuity of Care Document ---
:1960 External Reference #:[id number] Author Name ED Otero Address [address] [place] [address] Care Team Providers Name Role Phone Flo Burciaga MD - Internal Care Team Information Machine Tool Builder Medicine [place] V[place]ra MD - Interventional Care Team Information Machine Tool Builder [phone] Pain Medicine Aidan Moran MD - Family Medicine Care Team Information Machine Tool Builder Problems Active Problems Provider Date Acquired trigger finger Kyara Leyva M.D. Onset: 04/22/2011 Derangement of medial meniscus Geovany Nagy MD Onset: 11/25/2016 Sprain of medial collateral ligament of knee Geovany Nagy MD Onset: 2016 Strain of rotator cuff capsule Geovany Nagy MD Onset: 11/03/2018 Radiculopathy, cervical region Geovany Nagy MD Onset: 11/03/2018 Bicipital tenosynovitis Geovany Nagy MD Onset: 05/08/2019 Incomplete rotator cuff tear or rupture of Geovany Nagy MD Onset: 05/08/2019 right shoulder, not specified as traumatic Chronic obstructive lung disease Onset: Social History Type Date Description Comments Sex Unknown Tobacco Use Start: Unknown Current Cigarette Smoker 1 1/2 Packs Daily ETOH Use Denies alcohol use Recreational Drug Use Denies Drug Use Tobacco Use Start: Unknown End: Patient is a former smoker Unknown Smoking Status Reviewed: 06/14/19 Patient is a former smoker Exercise Type/Frequency Exercises regularly Allergies, Adverse Reactions, Alerts Active Allergies Reaction Severity Comments Date Cipro 08/05/2010 Morphine Sulfate 11/11/2016 Medications Active Medications SIG Qnty Indications Ordering Date Provider Prednisone 40 mg po once daily 14tabs J44.1 Aura Whitten, 06/14/2019 20mg for 7 days LEGAL DEPARTMENT MANAGER Tablets Azithromycin take two tabs (500 6tabs J44.1 Aura Whitten, 06/14/2019 250mg mg) by mouth one LEGAL DEPARTMENT MANAGER Tablets time today, then 250 mg by mouth once daily for four days. Oxycodone HCL 1 tabs by mouth 9tabs [...] as needed. Gabapentin 1 tablet by mouth Ashkan, 300mg noon and bedtime ED Ibrahim-BLADIMIR Capsules Breo Ellipta 1 puff inhaled Unknown [...] Kit Lancet Device 1 q am Unknown [facility] Blood Glucose Test check blood glucose Unknown daily in am Strips Venlafaxine HCL 1 by mouth every Unknown 75mg day Tablets Omeprazole 1 by mouth every Unknown 20mg day Capsules Pravastatin Sodium 1 by mouth every Unknown [...] Available Vital Signs Date Vital Result Comment 06/14/2019 7:12pm Heart Rate 104 /min BP Systolic 122 mmHg BP Diastolic 72 mmHg Respiratory Rate 18 /min Body Temperature 98.1 F Iburpofen at 5:00pm Pain Level 3 O2 % BldC Oximetry 9192 % Patient says normally 97 05/08/2019 10:02am Height 69 inches 5'9" Weight 194.00 lb Heart Rate 82 /min Respiratory Rate 16 /min Body Temperature 96.4 F Pain Level 7 BMI (Body Mass Index) 28.6 kg/m2 Results Test Acquired Date Facility Test Result H/L Range Note Laboratory test 04/25/2019 [facility] Point of Care 124 mg/dL High 70-100 [address] [place] [address] [phone] Living Advisor: [id number] Procedures Date Code Description Status 04/25/2019 58605 Arthroscopy Shoulder,W/Rotator Cuff Repair Completed 04/25/2019 26628 Arthroscopy Shoulder,W/Rotator Cuff Repair Completed 04/25/2019 10621 Arthroscopy,Shoulder Decompression Of Subacromial Space Completed W/Acromio 04/25/2019 16394 Arthroscopy,Shoulder Decompression Of Subacromial Space Completed W/Acromio Medical Devices Description No Information Available Encounters Type Date Location Provider Dx Diagnosis Office Visit 03/20/2019 [facility] Geovany Nagy MD S46.011D Strain of 10:00a at [place] musc/tend the rotator cuff of right shoulder, subs M54.12 Radiculopathy, cervical region Assessments Date Code Description Provider 06/14/2019 J44.1 Acute exacerbation of chronic obstructive ED Otero airways disease 05/08/2019 M75.111 Incomplete rotator cuff tear or rupture of Geovany Nagy MD right shoulder, not specified as traumatic 05/08/2019 M75.21 Bicipital tendinitis, right shoulder Geovany Nagy MD 05/08/2019 Z47.89 Encounter for other orthopedic aftercare Geovany Nagy MD 04/25/2019 M75.111 Incomplete rotator [...] Geovany Nagy MD Plan of Treatment Future Appointment(s):07/10/2019 10:45 am - Geovany Nagy MD at [facility] at Xbyxvj6406/14/2019 - ED OteroJ44.1 Acute exacerbation of chronic obstructive airways diseaseNew Medication:Prednisone 20 mg - 40 mg po once daily for 7 daysAzithromycin 250 mg - take two tabs (500 mg) by mouth one time today, then 250 mg by mouth once daily for four days.Comments:Please take prednisone and azithromycin pack as prescribed today. . Continue with albuterol , Spiriva, and Brio as previously prescribed for COPD management. Continue to get adeuqate rest. As discussed,it would benefit you to go to the ER for continued monitoring due to shortness of breath at present,low O2 (patient states normal O2 is 97 on room air and it is 91 on room air in office). As discussed, please have your daughter stay with you tonight and please go to the ER if fever returns or if symptoms worsen, including further shortness of breath that does not respond to your albuterol. Functional Status Description No Information Available Mental Status Description No Information Available Referrals Description No Information Available
--- OUTSIDE RECORDS SUMMARY | 2019-07-06 12:07 | XMS REPORT | Continuity of Care Document ---
:1960 External Reference #:[id number] Author Name Geovany Nagy MD (transmitted by agent of provider Aura Whitten) Address [address] [facility], [place] [address] Care Team Providers Name Role Phone Flo Burciaga MD - Internal Care Team Information Customer Sales Specialist Medicine [place] Vieyra MD - Interventional Care Team Information Customer Sales Specialist Pain Medicine Aidan Moran MD - Family Medicine Care Team Information Customer Sales Specialist Problems Active Problems Provider Date Acquired trigger [...] Aura Whitten, 06/14/2019 20mg for 7 days ECOLOGY TEACHER Tablets Azithromycin take two tabs (500 6tabs J44.1 Aura Whitten, 06/14/2019 250mg mg) by mouth one ECOLOGY TEACHER Tablets time today, then 250 mg by [...] mouth Ashkan, 300mg noon and bedtime ED Ibrahim-BC Capsules Breo Ellipta 1 puff inhaled Unknown [...] Result H/L Range Note Laboratory test 04/25/2019 [facility] Point of Care 124 mg/dL High 70-100 [address] [place] [address] [phone] Crime Scene Examiner: [id number] Procedures Date Code Description Status 04/25/2019 60907 Arthroscopy Shoulder,W/Rotator Cuff Repair Completed 04/25/2019 43941 Arthroscopy Shoulder,W/Rotator Cuff Repair Completed 04/25/2019 29861 Arthroscopy,Shoulder Decompression Of Subacromial Space Completed W/Acromio 04/25/2019 06751 Arthroscopy,Shoulder Decompression Of Subacromial Space Completed W/Acromio Medical Devices Description No Information Available Encounters Type Date Location Provider Dx Diagnosis Office Visit 03/20/2019 [facility] Geovany Nagy MD S46.011D Strain of 10:00a at [place] musc/tend the rotator cuff of right shoulder, [...] of muscle(s) and tendon(s) of the Geovany Nayg MD rotator cuff of right shoulder, subsequent encounter 04/17/2019 M54.12 Radiculopathy, cervical region Geovany Nagy MD 03/20/2019 S46.011D Strain of muscle(s) and tendon(s) of the Geovany Nagy MD rotator cuff of right shoulder, subsequent encounter 03/20/2019 M54.12 Radiculopathy, cervical region Geovany Nagy MD Plan of Treatment Future Appointment(s):07/10/2019 10:45 am - Geovany Nagy MD at [facility] at [id number]/14/2019 - ED OteroJ44.1 Acute exacerbation of chronic [...]
[2019-07-06 12:24] VITALS: BP 125/82
--- NOTE | 2019-07-06 14:17 | UC ---
Complaint Male HPI - HPI Summary HPI Summary: Patient is a 58-year-old male presenting with dysuria and dark-colored urine 2 days. Denies hematuria, frequency, and urgency. Denies abdominal pain. Does know bilateral lower back ache intermittently for the last week. Denies any pain currently. Denies nausea and vomiting. Denies changes in bowel movements but states that recently when he has a bowel movement he can "sometimes feel it in his bladder." Denies any fever or chills. Notes normal appetite and fluid intake. PMHx significant for hypertension and dyslipidemia. Patient was a heavy every day smoker "for many years." Patient states that he put smoking 2 weeks ago but on occasion has had up to 5 cigarettes/day when he "slips up." - History of Current Complaint Chief Complaint: UCGU Stated Complaint: URINARY COMPLAINT Pain Intensity: 0 Pain Scale Used: 0-10 Numeric - Allergies/Home Medications Allergies/Adverse Reactions: Allergies Allergy/AdvReac Type Severity Reaction Status Date / Time ciprofloxacin Allergy Rash Verified 07/06/19 12:19 morphine Allergy STOMACH/CHEST Verified 07/06/19 12:19 PAIN PMH/Surg Hx/FS Hx/Imm Hx Endocrine History: Dyslipidemia Cardiovascular History: Hypertension - Surgical History Surgical History: Yes Surgery Procedure, Year, and Place: Cholecystectomy [facility] 2008-2 MENISCUS TEARS RIGHT KNEE; 2 left knee meniscus 03/2016; 2 NECK FUSION SURGERY [place] 2013; right hand trigger finger surgery; lipoma excision - Family History Known Family History: Positive: Cardiac Disease, Hypertension, Diabetes - Social History Alcohol Use: None Substance Use Type: None Smoking Status (MU): Light Every Day Tobacco Smoker Type: Cigarettes Amount Used/How Often: 5-7 cigs/day Length of Time of Smoking/Using Tobacco: started about age [age] years old Have You Smoked in the Last Year: Yes When Did the Patient Quit Smoking/Using Tobacco: 12/27 Household Exposure Type: Cigarettes - Immunization History Most Recent Influenza Vaccination: no Review of Systems All Other Systems Reviewed And Are Negative: Yes Constitutional: Positive: Negative. Negative: Fever, Chills, Fatigue Skin: Positive: Negative Respiratory: Positive: Negative Cardiovascular: Positive: Negative Gastrointestinal: Positive: Negative Genitourinary: Positive: Dysuria, Other. Negative: Hematuria, Frequency, Urgency, Vaginal/Penile Discharge - "dark urine" Musculoskeletal: Positive: Negative Neurological: Positive: Negative Physical Exam - Summary Physical Exam Summary: Vital Signs Reviewed: Yes A+Ox3, no distress Eyes: Conjunctiva Clear ENT: Hearing grossly normal TM x 2 clear, moist, uvula midline, no exudate, no erythema Neck: Positive: Supple Respiratory: Positive: No respiratory distress, No accessory muscle use + CTA throughout no w/r Cardiovascular: RRR nl s1, s2 no m/r CBT <2 sec Abd: soft + BS, TTP of epigastric region and LLQ, distended abdomen patient states is normal for him, no guarding Musculoskeletal Exam: CHAPMAN x 4 without difficulty Neurological: Positive: Alert Psychological: Positive: age appropriate behavior Skin: Positive: no rash, no ecchymosis, no jaundice Vital Signs: Initial Vital Signs Temp 99.4 F 07/06/19 12:20 Pulse 96 07/06/19 12:20 Resp 16 07/06/19 12:20 BP 125/82 07/06/19 12:20 Pulse Ox 97 07/06/19 12:20 Lab Results 07/06/19 Range/Units 12:30 POC Urine Color Dark yellow POC Urine Clarity Clear POC Urine pH 6.0 (5-9) POC Ur Specif [place] 1.025 (1.010-1.030) POC Urine Protein 1+ A (Negative) POC Ur Glucose (UA) Negative (Negative) POC Urine Ketones Trace (Negative) POC Urine Blood Negative (Negative) POC Urine Nitrite Negative (Negative) POC Urine Bilirubin 1+ A (Negative) POC Urine Urobilinogen 4.0 A (Negative) POC U Leukocyte Esteras Negative (Negative) Complaint Male Course/Dx - Course Course Of Treatment: UA 1+protein, 1+bilrubin, trace ketones, and 4.0 urobilinogen. Discussed no evidence for infection given UA results. Discussed urine results with the patient and unclear source of urinary symptoms. Patient consented to lab work, including CBC, liver panel, lipase. Patient also requested hemoglobin A1c. I gave strict instructions to follow up with PCP as soon as possible. Patient states he would call upon leaving the urgent care and make an appointment for Tuesday. Instructed to go to the emergency room with any new or worsening symptoms. Patient well-appearing, vital signs normal, and in no pain distress. Patient voiced understanding and agreed with the treatment plan. - Differential Dx/Diagnosis Provider Diagnosis: Dysuria Discharge ED - Sign-Out/Discharge Documenting (check all that apply): Patient Departure All imaging exams completed and their final reports reviewed: No Studies - Discharge Plan Condition: Stable Disposition: HOME Patient Education Materials: Dysuria (ED) Referrals: Aidan Moran MD [Primary Care Provider] - As Soon As Possible Additional Instructions: As discussed, your urine did not show sign of infection today. The cause of your urinary symptoms is not clear today. You have received lab work today and strict instructions to follow up with your primary care provider as soon as possible next week. Go to the emergency room if you experience any new or worsening symptoms, including severe pain, fever and chills, nausea and vomiting, or difficulty urinating. - Billing Disposition and Condition Condition: STABLE Disposition: Home - Attestation Statements Provider Attestation: I was available for consult. This patient was seen by the ISABELLA. The patient was not presented to, seen by, or examined by me. -Annelise
[2019-07-06 19:03] LABS: ABS Basophils 0.1 10^3/ul (0-0.2); ABS Eosinophils 0.2 10^3/ul (0-0.6); ABS Lymphocytes 2.7 10^3/ul (1.0-4.8); ABS Monocytes 0.7 10^3/ul (0-0.8); ABS Neutrophils 5.5 10^3/ul (1.5-7.7); Eosinophil % 2.6 %; Hematocrit 46 % (42-52); Hemoglobin 15.9 g/dL (14.0-18.0); Lymphocyte % 29.7 %; Mean Corpuscular HGB Conc 34 g/dL (31-36); Mean Corpuscular Hemoglobin 32 pg (27-31); Mean Corpuscular Volume 93 fL (80-94); Mean Platelet Volume 10.2 fL (7.4-10.4); Nucleated Red Blood Cells % 0.3; Platelet Count 257 10^3/uL (150-450); Red Blood Count 4.96 10^6 /uL (4.18-5.48); Red Cell Distribution Width 13 % (10-15); White Blood Count 9.2 10^3/uL (3.5-10.8)
[2019-07-06 21:45] LABS: Albumin 4.9 g/dL (3.2-5.2); Indirect Bilirubin 0.5 mg/dL (0.3-1.0); Total Bilirubin 0.6 mg/dL (0.2-1.0)
[2019-07-06 21:51] LABS: Albumin/Globulin Ratio 2.1 (1-3); Globulin 2.3 g/dL (2-4); Total Protein 7.2 g/dL (6.4-8.9)
== END 2019-07-06 13:44 | disposition home or self-care (01) ==
LOC: UCCORT 11:16
DX: R30.0 Dysuria (principal); I10 Essential (primary) hypertension; F17.210 Nicotine dependence, cigarettes, uncomplicated; Z88.1 Allergy status to other antibiotic agents; Z88.5 Allergy status to narcotic agent
CPT/HCPCS: 36415; 80076; 81003; 83036; 83690; 85025; 99211; G0463